=== PATIENT | male | born 1940 | race Caucasian/White ===

== ENCOUNTER → 2019-06-16 | Outpatient (CLI) | payer OTHER | END | disposition home or self-care (01) | LOC: RAH 13:24 | PROVIDERS: ATTEND Internal Medicine Cardiovascular Disease | DX: Z13.6 Encounter for screening for cardiovascular disorders (principal) | CPT/HCPCS: 75571 ==

== ENCOUNTER 2020-02-17 07:53 | Day surgery (SDC) | payer MEDICARE ==
[2020-02-11 12:18] LABS: BASOPHILS % (AUTO) 0.8 % (0.0-5.0); EOSINOPHILS % (AUTO) 3.7 % (0.0-8.0); HEMATOCRIT 44.4 % (42-54); MEAN CORPUSCULAR HEMOGLOBIN 29.6 pg (27.0-33.0); MEAN CORPUSCULAR HGB CONC 32.2 g/dL (32.0-36.0); MEAN CORPUSCULAR VOLUME 91.9 fL (79-99); MONOCYTES % (AUTO) 9.9 % (3.0-13.0); NEUTROPHILS % (AUTO) 70.3 % (40.0-77.0); PLATELET COUNT (AUTO) 221 K/uL (130-400); RED BLOOD CELL COUNT(AUTO) 4.83 MIL/uL (4.50-6.20); RED CELL DISTRIBUTION WIDTH 13.3 % (11.0-15.5); WHITE BLOOD COUNT (AUTO) 5.9 K/uL (4.8-10.8)
[2020-02-11 12:26] LABS: APPEARANCE,URINE Cloudy (CLEAR); BILIRUBIN,URINE Negative (NEGATIVE); COLOR,URINE Dark Yellow (YELLOW); GLUCOSE, URINE (UA) Negative (NEGATIVE); KETONES,URINE Negative (NEGATIVE); LEUKOCYTE ESTERASE ,URINE Trace (NEGATIVE); NITRATE,URINE Negative (NEGATIVE); OCCULT BLOOD,URINE Moderate (NEGATIVE); PH,URINE 5.5 (5.0-8.0); PROTEIN,URINE POS 1+ mg/dL (NEGATIVE)
[2020-02-11 12:30] LABS: CREATININE 0.9 mg/dL (0.5-1.5); POTASSIUM 4.2 mmol/L (3.5-5.1)
[2020-02-11 12:31] LABS: INR 0.98 (0.85-1.15); PARTIAL THROMBOPLASTIN TIME 25.9 SEC (26.3-35.5); PROTHROMBIN TIME 10.6 SEC (9.6-11.6)
[2020-02-11 12:49] LABS: BACTERIA,URINE Moderate /HPF (None Seen); MUCUS,URINE Rare LPF (None Seen); RBC,URINE 0-1 /HPF (0-1); SQUAMOUS EPITHELIAL CELL,UR Few /HPF (0-2)
[2020-02-13 08:46] VITALS: BP 190/93
[2020-02-17] VITALS (17 sets, daily range): BP systolic 140–183; BP diastolic 56–91
[~2020-02-17] VITALS: Ht 174 cm; Wt 108.9 kg
[~2020-02-17 07:53] MED LIST: AMLO-257 PO; CARV12.511 PO; FINA5TAB41 PO; ISOS10TA8 PO; LEVO500T89 PO; ROSU10TA28 PO; TAMS-1 PO
[2020-02-17] MEDS: LACTATED RINGERS 1000ML 1,000 ML IV ONE (09:53)
[2020-02-17] MEDS ORDERED: LIDOCAINE PF 2% 5ML ABBOJECT ONE (10:09)
[2020-02-17] MEDS ORDERED: SUCCINYLCHOLINE 200MG/10ML SYR ONE (10:09)
[2020-02-17] MEDS ORDERED: DEXAMETHASONE SOD PHOSPHATE 10MG/ML 1ML VIAL ONE ×2 (10:09→10:13)
[2020-02-17] MEDS ORDERED: NEOSTIGMINE 5MG/5ML SYR IV ONE (10:10)
[2020-02-17] MEDS ORDERED: ONDANSETRON HCL 4 MG/2 ML VIAL ONE (10:10)
[2020-02-17] MEDS ORDERED: FENTANYL CITRATE PF 50 MCG/1 ML 2ML VIAL ONE (10:10)
[2020-02-17] MEDS ORDERED: PROPOFOL 10 MG/ML 20ML VIAL IV ONE ×2 (10:10→11:37)
[2020-02-17] MEDS ORDERED: MIDAZOLAM HCL 1 MG/ML 2ML VIAL ONE (10:10)
[2020-02-17] MEDS ORDERED: ROCURONIUM 10MG/1ML SYR 10 MG/ML ML ONE (10:10)
[2020-02-17] MEDS ORDERED: GLYCOPYRROLATE 1 MG/5 ML SYRINGE ONE (10:10)
[2020-02-17] MEDS: GENTAMICIN 80 MG/NS 100 ML PB 100 ML IV SCH (10:25)
[2020-02-17] MEDS: CEFTRIAXONE SODIUM 1 GM IVP SCH (10:30)
--- NOTE | 2020-02-17 13:10 | NUR ---
PATIENT ARRIVED TO DAY PATIENT VIA STRETCHER BY ALMAZ ROJAS. PATIENT [id number], RESPIRATIONS UNLABORED, VITAL SIGNS STABLE. HA CATHETER DRAINING CLEAR YELLOW URINE. NO C/O PAIN AT THIS TIME.
--- NOTE | 2020-02-17 13:35 | NUR ---
HA CATHETER BAG CHANGED OUT TO A LEG BAG, PATIENT TOLERATED WELL. HA CARE INSTRUCTIONS PROVIDED TO PATIENT, VERBALIZED UNDERSTANDING.
--- NOTE | 2020-02-17 14:00 | NUR ---
PATIENT DISCHARGED FROM FACILITY VIA WHEELCHAIR BY NURSE, PATIENT ASSISTED INTO PRIVATE VEHICLE DRIVEN BY SON.
== END 2020-02-17 14:00 | disposition home or self-care (01) ==
LOC: DAH 07:53
PROVIDERS: ATTEND Urology
DX: N40.1 Benign prostatic hyperplasia with lower urinary tract symptoms (principal); C61 Malignant neoplasm of prostate; G47.33 Obstructive sleep apnea (adult) (pediatric); I10 Essential (primary) hypertension; E66.9 Obesity, unspecified; E78.5 Hyperlipidemia, unspecified; R33.9 Retention of urine, unspecified; Z79.899 Other long term (current) drug therapy; Z20.828 Contact with and (suspected) exposure to other viral communicable diseases
CPT/HCPCS: 36415; 52648; 55700; 71045; 76942; 80048; 81001; 85025; 85610; 85730; 87077; 87088; 87186; 88305; 88341; 88342; 93005; A4215 ×2; A4221; A4222; A4223; A4355; A4600; A4663; A6260; C1758; C9803; J0330; J1100 ×2; J1580 ×2; J2001; J2250; J2405; J2704 ×2; J2710; J3010; J3490; J7030; J7120 ×2; U0003; J0696

== ENCOUNTER 2020-09-21 10:29 | Day surgery (SDC) | payer MEDICARE ==
[2020-09-15 10:05] LABS: BASOPHILS % (AUTO) 1.4 % (0.0-5.0); EOSINOPHILS % (AUTO) 1.9 % (0.0-8.0); HEMATOCRIT 44.6 % (42-54); LYMPHOCYTES % (AUTO) 15.9 % (21.0-51.0); MEAN CORPUSCULAR HGB CONC 34.1 g/dL (32.0-36.0); MEAN CORPUSCULAR VOLUME 90.8 fL (79-99); MONOCYTES % (AUTO) 10.1 % (3.0-13.0); NEUTROPHILS % (AUTO) 70.5 % (40.0-77.0); PLATELET COUNT (AUTO) 202 K/uL (130-400); RED BLOOD CELL COUNT(AUTO) 4.91 MIL/uL (4.50-6.20); RED CELL DISTRIBUTION WIDTH 12.8 % (11.0-15.5); WHITE BLOOD COUNT (AUTO) 5.9 K/uL (4.8-10.8)
[2020-09-15 10:13] LABS: POTASSIUM 4.4 mmol/L (3.5-5.1)
[2020-09-15 10:14] LABS: APPEARANCE,URINE Cloudy (CLEAR); BILIRUBIN,URINE Negative (NEGATIVE); COLOR,URINE Dark Yellow (YELLOW); GLUCOSE, URINE (UA) Negative (NEGATIVE); KETONES,URINE Trace mg/dL (NEGATIVE); LEUKOCYTE ESTERASE ,URINE Moderate (NEGATIVE); NITRATE,URINE Negative (NEGATIVE); OCCULT BLOOD,URINE Large (NEGATIVE); PH,URINE 5.5 (5.0-8.0); PROTEIN,URINE POS 2+ mg/dL (NEGATIVE)
[2020-09-15 10:17] LABS: INR 1.09 (0.85-1.15); PROTHROMBIN TIME 11.8 SEC (9.6-11.6)
[2020-09-15 10:19] LABS: PARTIAL THROMBOPLASTIN TIME 27.3 SEC (26.3-35.5)
[2020-09-15 11:09] LABS: RBC,URINE 26-50 /HPF (0-1)
[2020-09-15 11:10] LABS: BACTERIA,URINE Few /HPF (None Seen); CALCIUM OXALATE CRYSTALS,UR Few /LPF (None Seen)
[2020-09-20 10:27] VITALS: BP 155/80
[~2020-09-21] VITALS: Ht 175.3 cm; Wt 113.4 kg
[2020-09-21] VITALS (18 sets, daily range): BP systolic 117–186; BP diastolic 65–93
[~2020-09-21 10:29] MED LIST changes: -CARV12.511 PO; +CARV25TA PO; +CEFTRIAXONE SODIUM 1 GM IVP SCH; -FINA5TAB41 PO; +GENTAMICIN 80 MG/NS 100 ML PB 100 ML IV SCH; -TAMS-1 PO; +VALS320T16 PO
[2020-09-21] MEDS ORDERED: LACTATED RINGERS 1000ML 1,000 ML IV ONE (11:32)
[2020-09-21] MEDS ORDERED: SUCCINYLCHOLINE 200MG/10ML SYR ONE (14:37)
[2020-09-21] MEDS ORDERED: LIDOCAINE HCL MPF 1% 5ML VIAL ONE (14:37)
[2020-09-21] MEDS ORDERED: FENTANYL CITRATE PF 50 MCG/1 ML 2ML VIAL ONE (14:38)
[2020-09-21] MEDS ORDERED: MIDAZOLAM HCL 1 MG/ML 2ML VIAL ONE (14:38)
[2020-09-21] MEDS ORDERED: PROPOFOL 10 MG/ML 20ML VIAL IV ONE (14:38)
[2020-09-21] MEDS ORDERED: ROCURONIUM 10MG/1ML SYR 10 MG/ML ML ONE (14:38)
[2020-09-21] MEDS ORDERED: GLYCOPYRROLATE 1 MG/5 ML SYRINGE ONE (15:16)
== END 2020-09-21 17:35 | disposition home or self-care (01) ==
LOC: DAH 10:29
PROVIDERS: ATTEND Urology
DX: N21.0 Calculus in bladder (principal); Z20.822 Contact with and (suspected) exposure to COVID-19; N21.1 Calculus in urethra; I10 Essential (primary) hypertension; E66.01 Morbid (severe) obesity due to excess calories; Z85.46 Personal history of malignant neoplasm of prostate; Z79.01 Long term (current) use of anticoagulants
CPT/HCPCS: 36415 ×2; 52318; 71045; 80048; 81001; 82360; 85025; 85610; 85730; 87088; 93005; A4215; A4221; A4222; A4223; A4344; A4358; A4663; A5113; A6260; C1769; C9803; J0330; J0696; J1580; J2250; J2704; J3490 ×2; J7120 ×2; U0003; J3010

== ENCOUNTER → 2022-07-25 | Outpatient (CLI) | payer MEDICARE ==
[~2022-07-25] MED LIST changes: -CEFTRIAXONE SODIUM 1 GM IVP SCH; -GENTAMICIN 80 MG/NS 100 ML PB 100 ML IV SCH; +LEVO-70 PO; -LEVO500T89 PO; +REGADENOSON 0.4 MG/5 ML PF SYG IVP SCH
== END | disposition home or self-care (01) ==
LOC: RAH 10:54
PROVIDERS: ATTEND Internal Medicine Cardiovascular Disease
DX: I20.9 Angina pectoris, unspecified (principal)
CPT/HCPCS: 78452; 96374; 93017; J2785; A9500 ×2